=== PATIENT | male | born 1970 | race Caucasian/White ===

== ENCOUNTER 2021-10-26 23:11 | Inpatient (IN) | payer MEDICAID ==
[~2021-10-26] VITALS: Ht 180.3 cm; Wt 95.1 kg
[2021-10-27] MEDS ORDERED: clindamycin-Cleocin 900mg/D5W 50 ML IV ONE (04:30)
[2021-10-27 04:54] LABS: BASOPHILS # (AUTO) 0.1 X10'3 (0-0.2); BASOPHILS % (AUTO) 0.3 % (0-1); EOSINOPHILS % (AUTO) 0.2 % (0-6); HEMATOCRIT 42.3 % (42.0-52.0); HEMOGLOBIN 13.8 g/dl (14.0-17.9); LYMPHOCYTES # (AUTO) 1.1 X10'3 (1.1-4.8); LYMPHOCYTES % (AUTO) 5.4 % (21-51); MEAN CORPUSCULAR HEMOGLOBIN 28.5 PG (27.0-31.0); MEAN CORPUSCULAR HGB CONC 32.6 g/dL (33.0-36.5); MEAN CORPUSCULAR VOLUME 87.3 FL (78-98); MEAN PLATELET VOLUME 8.6 FL (7.4-10.4); MONOCYTES # (AUTO) 1.9 X10'3 (0-0.9); MONOCYTES % (AUTO) 9.7 % (2-12); NEUTROPHILS # (AUTO) 16.8 X10'3 (1.8-7.7); NEUTROPHILS % (AUTO) 84.4 % (42-75); PLATELET COUNT 259 X10'3 (140-440); RED BLOOD COUNT 4.85 X10'6 (4.70-6.10); RED CELL DISTRIBUTION WIDTH 12.7 % (11.5-14.5); WHITE BLOOD COUNT 19.9 X10'3 (4.5-11.0)
[2021-10-27 05:04] LABS: ALANINE AMINOTRANSFERASE 59 U/L (12-78); ALBUMIN 3.6 G/DL (3.4-5.0); ALKALINE PHOSPHATASE 63 IU/L (46-116); ANION GAP 6 (8-16); ASPARTATE AMINO TRANSFERASE 38 U/L (10-37); BILIRUBIN,TOTAL 0.7 MG/DL (0.1-1.0); BLOOD UREA NITROGEN 10 MG/DL (7-18); BUN/CREATININE RATIO 8.9 (5.4-32.0); CALCIUM 8.9 MG/DL (8.5-10.1); CHLORIDE 104 MMOL/L (99-107); CREATININE 1.12 MG/DL (0.60-1.10); GLUCOSE 124 MG/DL (70-104); POTASSIUM 4.3 MMOL/L (3.5-5.1); SODIUM 135 MMOL/L (135-145); TOTAL CARBON DIOXIDE 25.5 MMOL/L (24-32); TOTAL PROTEIN 7.1 G/DL (6.4-8.2); eGFR 69 ML/MIN
[2021-10-27] MEDS ORDERED: morphine 4 MG/ML inj SYRINge IV ONE (06:55)
[2021-10-27] MEDS ORDERED: ondansetron/PF 4mg/2ml inj IV ONE (06:55)
[2021-10-27] MEDS ORDERED: bisacodyl 10mg suppository rectal RC PRN (07:35)
[2021-10-27] MEDS ORDERED: ondansetron 4mg rapidly disintigrating tab PO PRN (07:35)
[2021-10-27] MEDS ORDERED: magnesium 4gm in 100ml NS 100 ML IV PRN (07:35)
[2021-10-27] MEDS ORDERED: diphenhydrAMINE 50 mg/ml inj IV PRN (07:35)
[2021-10-27] MEDS ORDERED: magnesium 2GM in 50ml NS 50 ML IV PRN (07:35)
[2021-10-27] MEDS ORDERED: HYDROcodone/acetaminophen 10/325mg tab PO PRN (07:35)
[2021-10-27] MEDS ORDERED: TETanus/Pertussis (Acell)/Diphther VAC/PF (Tdap-Adult) 0.5ml syringe IMVAC ONE (07:35)
[2021-10-27] MEDS ORDERED: acetaminophen 325mg tablet PO PRN ×2 (07:35)
[2021-10-27] MEDS ORDERED: diphenhydrAMINE 25mg capsule PO PRN (07:35)
[2021-10-27] MEDS ORDERED: potassium CL 10mEq/100ml bag 100 ML IV PRN (07:35)
[2021-10-27] MEDS ORDERED: POTASSIUM BICARB 20meq eff tab 20 MEQ TABLET.EFF PO PRN ×2 (07:35)
[2021-10-27] MEDS ORDERED: HYDROmorphone/PF 0.2 MG/ML SYRINGE IV PRN (07:35)
[2021-10-27] MEDS ORDERED: metoclopramide 5 mg/ml inj IV PRN (07:35)
[2021-10-27] MEDS ORDERED: magnesium Cl slow-release 64mg tablet PO PRN (07:35)
[2021-10-27] MEDS ORDERED: ondansetron/PF 4mg/2ml inj IV PRN (07:35)
[2021-10-27] MEDS ORDERED: acetaminophen 650mg rectal suppository RC PRN (07:35)
[2021-10-27] MEDS ORDERED: mag hydrox/Alum hydrox/simeth 30ml oral suspension PO PRN (07:35)
[2021-10-27] MEDS ORDERED: HYDROcodone/acetaminophen 5mg/325mg tablet PO PRN (07:35)
[2021-10-27] MEDS ORDERED: magnesium hydroxide 30ml (MOM) UD suspension PO PRN (07:35)
[2021-10-27] MEDS: K and/or MAG REPLACEMENT MC SCH ×2 (07:53→20:00)
[2021-10-27] MEDS: docusate sod 100mg capsule PO SCH ×2 (08:00→19:35)
[2021-10-27] MEDS: piperacillin/tazo 3.375gm/50ml 50 ML IV SCH ×2 (08:12→16:10)
[2021-10-27] MEDS: normal saline 1000ml 1,000 ML IV SCH ×2 (08:13→19:34)
--- NOTE | 2021-10-27 08:37 | NUR ---
DR RAMOS CALLED PER DR MONTALVO FOR PT CONSULT
[2021-10-27] MEDS: HYDROmorphone inj. 0.5 MG/0.5 ML DISP.SYRIN IV PRN ×3 (09:24→18:40)
[2021-10-27 09:27] LABS: MAGNESIUM 1.8 MG/DL (1.5-2.4); POTASSIUM 4.3 MMOL/L (3.5-5.1)
[2021-10-27 09:32] LABS: APTT 29 SECONDS (22-32)
--- NOTE | 2021-10-27 13:24 | NUR ---
REPORT TO OTILIA KLINE
--- NOTE | 2021-10-27 13:24 | NUR ---
Report received from OTILIA Lopez. All questions answered.
[2021-10-27 13:43] VITALS: BP 102/47
--- NOTE | 2021-10-27 18:30 | NUR ---
Patient in room ORTHO 4012. I have received report from Cristel BINGHAM and had the opportunity to ask questions and assume patient care. Addendum: 10/28/21 at 0442 by Becky Orellana RN Amended: Links added.
--- NOTE | 2021-10-27 19:03 | NUR ---
Report called to OTILIA Pena. All questions answered. Patient a/o x 4 with stable vital signs.
[2021-10-27 19:28] VITALS: BP 114/69
[2021-10-27] MEDS ORDERED: temazepam 15mg capsule PO PRN (21:00)
[2021-10-27 22:00] VITALS: BP 107/55
--- NOTE | 2021-10-27 22:01 | NUR ---
Dr. Wolfe phoned pt to have regular diet until MN tonight then NPO. Surgery delayed until tomorrow. Addendum: 10/27/21 at 2203 by Becky Orellana RN Amended: Links added.
[2021-10-28] VITALS (16 sets, daily range): BP systolic 94–159; BP diastolic 41–112
[2021-10-28] MEDS: normal saline 1000ml 1,000 ML IV SCH ×2 (00:15→10:59)
[2021-10-28] MEDS: piperacillin/tazo 3.375gm/50ml 50 ML IV SCH ×3 (00:42→16:18)
[2021-10-28] MEDS: HYDROmorphone inj. 0.5 MG/0.5 ML DISP.SYRIN IV PRN ×5 (02:38→21:06)
[2021-10-28 06:35] LABS: BASOPHILS % (AUTO) 0.3 % (0-1); EOSINOPHILS # (AUTO) 0.1 X10'3 (0-0.9); EOSINOPHILS % (AUTO) 0.6 % (0-6); HEMATOCRIT 40.5 % (42.0-52.0); HEMOGLOBIN 13.4 g/dl (14.0-17.9); LYMPHOCYTES # (AUTO) 1.1 X10'3 (1.1-4.8); LYMPHOCYTES % (AUTO) 7.1 % (21-51); MEAN CORPUSCULAR HEMOGLOBIN 28.8 PG (27.0-31.0); MEAN CORPUSCULAR VOLUME 87.4 FL (78-98); MEAN PLATELET VOLUME 8.4 FL (7.4-10.4); MONOCYTES # (AUTO) 1.2 X10'3 (0-0.9); MONOCYTES % (AUTO) 7.9 % (2-12); NEUTROPHILS # (AUTO) 13.2 X10'3 (1.8-7.7); NEUTROPHILS % (AUTO) 84.1 % (42-75); PLATELET COUNT 257 X10'3 (140-440); RED BLOOD COUNT 4.64 X10'6 (4.70-6.10); RED CELL DISTRIBUTION WIDTH 12.6 % (11.5-14.5); WHITE BLOOD COUNT 15.7 X10'3 (4.5-11.0)
[2021-10-28 06:58] LABS: ALANINE AMINOTRANSFERASE 46 U/L (12-78); ALBUMIN/GLOBULIN RATIO 0.8 (1.1-1.5); ALKALINE PHOSPHATASE 58 IU/L (46-116); ANION GAP 7 (8-16); ASPARTATE AMINO TRANSFERASE 22 U/L (10-37); BILIRUBIN,TOTAL 0.6 MG/DL (0.1-1.0); BLOOD UREA NITROGEN 13 MG/DL (7-18); BUN/CREATININE RATIO 12.5 (5.4-32.0); CALCIUM 8.4 MG/DL (8.5-10.1); CHLORIDE 102 MMOL/L (99-107); CREATININE 1.04 MG/DL (0.60-1.10); GLUCOSE 109 MG/DL (70-104); MAGNESIUM 1.9 MG/DL (1.5-2.4); SODIUM 136 MMOL/L (135-145); TOTAL CARBON DIOXIDE 26.7 MMOL/L (24-32); TOTAL PROTEIN 6.7 G/DL (6.4-8.2); eGFR 76 ML/MIN
[2021-10-28] MEDS: K and/or MAG REPLACEMENT MC SCH ×2 (08:00→20:00)
[2021-10-28] MEDS: docusate sod 100mg capsule PO SCH ×2 (08:05→22:28)
--- NOTE | 2021-10-28 16:54 | NUR ---
Pt transferred to OR via bed and report called to Raymond BINGHAM in Recovery Room.
[2021-10-28] MEDS ORDERED: ringers solution, lacted 1,000 ML IV SCH (18:05)
[2021-10-28] MEDS ORDERED: morphine 2 MG/ML inj. syringe IV PRN (18:05)
[2021-10-28] MEDS ORDERED: meperidine/PF 25mg/ml syringe IV PRN ×3 (18:05)
[2021-10-28] MEDS ORDERED: labetalol 20mg/4ml (5mg/ml) syringe IV PRN (18:05)
[2021-10-28] MEDS ORDERED: ondansetron/PF 4mg/2ml inj IV PRN (18:05)
[2021-10-28] MEDS ORDERED: hydrALAZINE 20mg/ml inj. IV PRN (18:05)
[2021-10-28] MEDS ORDERED: proCHLORperazine 10 MG/2 ml inj IV PRN (18:05)
[2021-10-28] MEDS ORDERED: morphine 4 MG/ML inj SYRINge IV PRN (18:05)
[2021-10-28] MEDS ORDERED: acetaminophen 1,000mg/100ml IV 100 ML IV PRN (18:05)
[2021-10-28] MEDS ORDERED: midazolam 1 mg/ML 2ml injection ONE (18:10)
[2021-10-28] MEDS ORDERED: fentaNYL/PF 50MCG/1 ML 2ML syringe ONE (18:10)
[2021-10-28] MEDS ORDERED: ondansetron/PF 4mg/2ml inj ONE (18:16)
[2021-10-28] MEDS ORDERED: propofol inj 20 ML IV ONE (18:16)
[2021-10-28] MEDS ORDERED: LIDOcaine 1%/PF 5ML 10 MG/ML VIAL ONE ×2 (18:16)
[2021-10-28] MEDS ORDERED: dexamethasone sod phosphate 4mg/ml inj. ONE (18:16)
[2021-10-28] MEDS ORDERED: morphine 4 MG/ML inj SYRINge ONE (18:31)
[2021-10-28] MEDS ORDERED: naloxone 0.4 mg/ml inj IV PRN (18:35)
[2021-10-28] MEDS ORDERED: HYDROcodone/acetaminophen 10/325mg tab PO PRN (18:35)
[2021-10-29] MEDS: piperacillin/tazo 3.375gm/50ml 50 ML IV SCH ×2 (00:28→08:40)
[2021-10-29] MEDS: normal saline 1000ml 1,000 ML IV SCH ×2 (00:28→09:35)
[2021-10-29 02:04] VITALS: BP 114/66
[2021-10-29 06:00] VITALS: BP 111/71
--- NOTE | 2021-10-29 06:27 | NUR ---
Problems reprioritized. Patient report given, questions answered & plan of care reviewed with Mercedez BINGHAM. Addendum: 10/29/21 at 0628 by Becky Orellana RN Amended: Links added.
[2021-10-29 06:31] LABS: BASOPHILS % (AUTO) 0.1 % (0-1); EOSINOPHILS % (AUTO) 0 % (0-6); HEMATOCRIT 38.8 % (42.0-52.0); LYMPHOCYTES # (AUTO) 0.5 X10'3 (1.1-4.8); LYMPHOCYTES % (AUTO) 3.3 % (21-51); MEAN CORPUSCULAR HEMOGLOBIN 29.1 PG (27.0-31.0); MEAN CORPUSCULAR HGB CONC 33.4 g/dL (33.0-36.5); MEAN CORPUSCULAR VOLUME 87.1 FL (78-98); MEAN PLATELET VOLUME 8.6 FL (7.4-10.4); MONOCYTES # (AUTO) 0.4 X10'3 (0-0.9); MONOCYTES % (AUTO) 2.8 % (2-12); NEUTROPHILS # (AUTO) 13.7 X10'3 (1.8-7.7); NEUTROPHILS % (AUTO) 93.8 % (42-75); PLATELET COUNT 299 X10'3 (140-440); RED BLOOD COUNT 4.45 X10'6 (4.70-6.10); RED CELL DISTRIBUTION WIDTH 12.1 % (11.5-14.5); WHITE BLOOD COUNT 14.6 X10'3 (4.5-11.0)
[2021-10-29 06:40] LABS: ALANINE AMINOTRANSFERASE 48 U/L (12-78); ALBUMIN/GLOBULIN RATIO 0.8 (1.1-1.5); ALKALINE PHOSPHATASE 62 IU/L (46-116); ANION GAP 9 (8-16); ASPARTATE AMINO TRANSFERASE 23 U/L (10-37); BILIRUBIN,TOTAL 0.3 MG/DL (0.1-1.0); BLOOD UREA NITROGEN 17 MG/DL (7-18); BUN/CREATININE RATIO 18.1 (5.4-32.0); CALCIUM 9.1 MG/DL (8.5-10.1); CHLORIDE 102 MMOL/L (99-107); CREATININE 0.94 MG/DL (0.60-1.10); GLUCOSE 143 MG/DL (70-104); MAGNESIUM 2.1 MG/DL (1.5-2.4); POTASSIUM 4.8 MMOL/L (3.5-5.1); SODIUM 136 MMOL/L (135-145); TOTAL CARBON DIOXIDE 25.2 MMOL/L (24-32); TOTAL PROTEIN 6.9 G/DL (6.4-8.2); eGFR 85 ML/MIN
[2021-10-29] MEDS: K and/or MAG REPLACEMENT MC SCH (08:00)
[2021-10-29] MEDS: docusate sod 100mg capsule PO SCH (08:40)
[2021-10-29 10:00] VITALS: BP 109/61
[2021-10-29] MEDS ORDERED: AMOX-580 PO (10:49)
[2021-10-29] MEDS ORDERED: HYDR-3972 PO (10:49)
--- NOTE | 2021-10-29 11:32 | NUR ---
Per Dr Stewart, keep packing in until appt for follow up. Showers okay. Dr Stewart is aware that Dr Hernandez called Dr Wolfe and Dr Pruitt initial instructions were remove packing and sitz baths tid. Dr Stewart re-iterated to keep the packing in and they will take it out with the follow up appt.
--- NOTE | 2021-10-29 11:55 | NUR ---
Patient discharged home with . Will follow up with Dr Wolfe. Dr Stewart wants packing left in and showers ok until he sees Dr Wolfe, although Dr Stewart is aware that Dr Wolfe wanted TID sitz bath and dressing removed. Pt given renzo-bottle as well incase packing falls out so he can do sitz style cleanings. Palmer and ABD given for protection of wound area. IV taken out. Meds sent preferred pharmacy, no meds in pharmacy, no tele. All belongings taken from room.
== END 2021-10-29 13:42 | disposition home or self-care (01) | DRG 223 ==
LOC: ER 23:14 → ED HOLD 10-27 07:39 → ORTHO 4S 10-27 19:10
PROVIDERS: ADMIT Family Medicine; ATTEND Family Medicine
PROC: 3E0234Z Introduction of Serum, Toxoid and Vaccine into Muscle, Percutaneous Approach (ICD-10-PCS; 2021-10-27)
PROC: BW2G1ZZ Computerized Tomography (CT Scan) of Pelvic Region using Low Osmolar Contrast (ICD-10-PCS; 2021-10-27)
PROC: 0D9P0ZZ Drainage of Rectum, Open Approach (ICD-10-PCS; principal; 2021-10-28 18:06)
DX: K61.1 Rectal abscess (principal); N17.0 Acute kidney failure with tubular necrosis; D72.829 Elevated white blood cell count, unspecified; Z20.822 Contact with and (suspected) exposure to COVID-19; E86.0 Dehydration; I10 Essential (primary) hypertension; Z23 Encounter for immunization
CPT/HCPCS: 36415; 71045; 72193; 80053; 82948; 83735; 84132; 84145; 85025; 85610; 85730; 87070; 87075; 87077; 87081; 87186; 87635; 90715; 99285; A4618; A6253; A6407; A6449; A7000; G0378; J1100; J1170; J2250; J2270; J2405; J2543; J2704; J3010; J3490; J7030

== ENCOUNTER 2024-01-13 15:17 | Outpatient (CLI) | payer MEDICAID ==
[~2024-01-13 15:17] MED LIST: AMOX-580 PO; HYDR-3972 PO
[2024-01-14] MEDS ORDERED: GADOTERATE MEGLUMINE 7.5 MMOL/15 ML VIAL IV ONE (07:07)
== END 2024-01-13 23:59 | disposition home or self-care (01) ==
LOC: MRI 15:17
PROVIDERS: ATTEND Surgery
DX: K60.3 Anal fistula (principal); Z68.31 Body mass index [BMI] 31.0-31.9, adult
CPT/HCPCS: 72197; A9575